=== PATIENT | female | born 1985 | race African-American/Black ===

== ENCOUNTER 2020-02-03 08:28 | Emergency (ER) | payer OTHER ==
[~2020-02-03] VITALS: Ht 170.2 cm; Wt 54.0 kg
[2020-02-03 09:47] LABS: BASOPHILS % 0.4 % (0.0-2.0); EOSINOPHILS % 0.4 % (0.0-5.0); HEMATOCRIT. 48.8 % (36.0-48.0); HEMOGLOBIN. 16.6 g/dL (12.0-16.0); LYMPHOCYTES % 21.9 % (20.0-50.0); MEAN CORPUSCULAR HEMOGLOBIN 32.2 pg (28.0-32.0); MEAN CORPUSCULAR VOLUME 94.6 fL (81.0-99.0); MEAN PLATELET VOLUME 8.4 fl (7.4-10.4); MONOCYTES % 5.3 % (2.0-8.0); PLATELET 239 x1000/uL (130-400); RED BLOOD CELL COUNT 5.16 mill/uL (4.2-5.4)
[2020-02-03 09:48] LABS: CLARITY URINE CLOUDY (CLEAR); COLOR URINE YELLOW (YELLOW); KETONES URINE NEGATIVE (NEGATIVE); LEUKOCYTE ESTERASE URINE 1+ (NEGATIVE); NITRITE URINE POSITIVE (NEGATIVE); OCCULT BLOOD URINE NEGATIVE (NEGATIVE); PROTEIN URINE NEGATIVE (NEGATIVE); SPECIFIC GRAVITY URINE 1.019 (1.005-1.030); UROBILINOGEN URINE 0.2 E.U./dL (0.2-1.0)
[2020-02-03 09:52] LABS: CHLORIDE 105 mEq/L (98-107)
[2020-02-03 09:58] LABS: PHENCYCLIDINE URINE SCREEN NEGATIVE (NEGATIVE)
[2020-02-03 09:59] LABS: *AMPHETAMINES SCREEN URINE NEGATIVE (NEGATIVE); *BARBITURATES SCREEN URINE NEGATIVE (NEGATIVE); *BENZODIAZEPINES SCREEN URINE NEGATIVE (NEGATIVE); METHADONE URINE SCREEN NEGATIVE (NEGATIVE); OPIATES URINE SCREEN NEGATIVE (NEGATIVE)
[2020-02-03 10:03] LABS: *COCAINE SCREEN URINE PRESUMTIVE POSITIVE (NEGATIVE); CANNABINOID URINE SCREEN PRESUMTIVE POSITIVE (NEGATIVE)
[2020-02-03 10:45] VITALS: BP 118/78
== END 2020-02-03 10:50 | disposition home or self-care (01) ==
LOC: ER 08:28
DX: N39.0 Urinary tract infection, site not specified (principal); R55 Syncope and collapse; F19.10 Other psychoactive substance abuse, uncomplicated; R05 Cough; J02.9 Acute pharyngitis, unspecified
CPT/HCPCS: 36415; 71045; 80053; 80305; 81003; 81025; 85025; 93005; 99285

== ENCOUNTER 2024-09-08 14:34 | Emergency (ER) | payer MEDICAID, OTHER ==
[~2024-09-08] VITALS: Ht 165.1 cm; Wt 54.0 kg
[2024-09-08 14:48] VITALS: O2SAT 100
[2024-09-08] MEDS: IBUPROFEN 600MG TABLET PO ONE (16:11)
[2024-09-08] MEDS: LIDOCAINE HCL/EPINEPHRINE 1%-EPI 1:100,000 20ML VIAL INFIL ONE (16:36)
[2024-09-08] MEDS ORDERED: SULF1TAB48 MT (16:42)
[2024-09-08] MEDS ORDERED: CEPH500T MT (16:42)
[2024-09-08 16:51] VITALS: BP 113/72; PULSE 93; RESP 18; TEMP 37.16964; O2SAT 100
== END 2024-09-08 16:55 | disposition home or self-care (01) ==
LOC: ER 14:50
DX: L02.31 Cutaneous abscess of buttock (principal); F14.10 Cocaine abuse, uncomplicated; F12.10 Cannabis abuse, uncomplicated; F16.10 Hallucinogen abuse, uncomplicated; F32.A Depression, unspecified; Z98.890 Other specified postprocedural states
CPT/HCPCS: 99283; 10060; J3490

== ENCOUNTER 2025-02-16 11:32 | Emergency (ER) | payer MEDICAID ==
[~2025-02-16] VITALS: Ht 165.1 cm; Wt 54.0 kg
[~2025-02-16 11:32] MED LIST: CEPH500T MT; SULF1TAB48 MT
[2025-02-16 11:44] VITALS: O2SAT 100
[2025-02-16] MEDS: ONDANSETRON 4MG ODT PO ONE (12:51)
[2025-02-16 13:57] LABS: CARBON DIOXIDE 26 mEq/L (21-32)
[2025-02-16 13:58] LABS: CALCIUM 9.8 mg/dL (8.7-10.4)
[2025-02-16 14:02] LABS: CREATININE 0.5 mg/dL (0.6-1.0)
[2025-02-16 14:03] LABS: GLUCOSE 108 mg/dL (70-105)
[2025-02-16 14:04] LABS: ALANINE AMINOTRANSFERASE 8 IU/L (10-49); ALBUMIN 4.6 g/dL (3.2-4.8); ASPARTATE AMINOTRANSFERASE 12 IU/L (<34)
[2025-02-16 14:05] LABS: BILIRUBIN TOTAL 0.4 mg/dL (0.1-1.0); PROTEIN TOTAL 8.6 g/dL (6.0-8.3)
[2025-02-16 14:08] LABS: ETHANOL BLOOD < 10 mg/dL (<10); UREA NITROGEN BLOOD < 5 mg/dL (9-23)
[2025-02-16 14:10] LABS: POTASSIUM 3.9 mEq/L (3.5-5.1); SODIUM 136 mEq/L (136-145)
[2025-02-16 14:11] LABS: CHLORIDE 97 mEq/L (98-107)
[2025-02-16 14:13] LABS: BASOPHILS % 0.2 % (0.0-2.0); HEMATOCRIT. 45.8 % (36.0-48.0); HEMOGLOBIN. 15.2 g/dL (12.0-16.0); LYMPHOCYTES % 8.1 % (20.0-50.0); MEAN CORPUSCULAR HGB CONC 33.2 g/dL (31.0-37.0); MEAN CORPUSCULAR VOLUME 93.5 fL (81.0-99.0); MONOCYTES % 9.1 % (2.0-8.0); NEUTROPHILS % 82.6 % (40.0-76.0); RED CELL DISTRIBUTION WIDTH 13.4 % (11.6-14.6); WHITE BLOOD COUNT 18.4 x1000/uL (4.5-11.0)
[2025-02-16 14:25] LABS: DIFFERENTIAL COMMENT 1
[2025-02-16 14:33] LABS: HCG SCREEN NEGATIVE
[2025-02-16 14:36] LABS: CLARITY URINE HAZY (CLEAR); COLOR URINE YELLOW (YELLOW); GLUCOSE URINE NEGATIVE (NEGATIVE); PROTEIN URINE 1+ (NEGATIVE); SPECIFIC GRAVITY URINE >1.030 (1.005-1.030)
[2025-02-16 14:37] LABS: KETONES URINE TRACE (NEGATIVE); LEUKOCYTE ESTERASE URINE TRACE (NEGATIVE); NITRITE URINE POSITIVE (NEGATIVE); OCCULT BLOOD URINE TRACE (NEGATIVE); UROBILINOGEN URINE 0.2 E.U./dL (0.2-1.0)
[2025-02-16] MEDS ORDERED: CEFP200T14 MT (14:40)
[2025-02-16 14:46] LABS: MUCUS URINE 2+ /lpf (< = 2+); SQUAMOUS EPITHELIAL CELL URINE 2+ /lpf (RARE/1+)
[2025-02-16 14:47] LABS: BACTERIA URINE 4+; RBC URINE 0-2 /hpf (0-2); WBC URINE 25-50 /hpf (0-2)
[2025-02-16 15:14] LABS: MEAN PLATELET VOLUME 8.9 fl (7.4-10.4); PLATELET 242 x1000/uL (130-400)
[2025-02-16] MEDS ORDERED: ONDA-239 PO (15:43)
[2025-02-16 15:52] VITALS: BP 106/70; PULSE 82; RESP 18; TEMP 36.5; O2SAT 100
== END 2025-02-16 15:52 | disposition home or self-care (01) ==
LOC: ER 11:32
DX: N39.0 Urinary tract infection, site not specified (principal); F12.10 Cannabis abuse, uncomplicated; F14.10 Cocaine abuse, uncomplicated; F16.10 Hallucinogen abuse, uncomplicated; Z79.899 Other long term (current) drug therapy
CPT/HCPCS: 80053; 81003; 80320; 84703; 83690; 85025; 36415; 99283; Q0162; G0480